=== PATIENT | male | born 1985 | race Caucasian/White ===

== ENCOUNTER 2023-06-01 11:07 | Emergency (ER) | payer OTHER, SELFPAY ==
[2023-06-01 11:10] VITALS: BP 164/85; PULSE 94; RESP 14; TEMP 37.2; O2SAT 99
--- OUTSIDE RECORDS SUMMARY | 2023-06-01 11:15 | XMS_ITS | Continuity of Care Document ---
Author Name Unknown Organization [facility] Address [address] [place] [address] Encounter [facility] FIN NBR [id number] Date(s): 06/14/22 - 06/14/22 [facility] [address], [place] [address] Encounter Diagnosis Encounter for screening for COVID-19(Discharge Diagnosis) - 06/14/22 Discharge Disposition: Home or Self Care Attending Physician: Johnny Land. [place] Problem List Condition Confirmation Course Effective Dates Status Health [facility] Informant Disease caused by 2019 novel coronavirus 1 Confirmed 06/14/22 Active 1Problem added by Rule (IC_COVID19_AUTO_PROBLEM) following SARS-CoV-2 (COVID-19) PCR (GeneXpert) from Nasopharyngeal Swab collected on 14-JUN-2022 10:12:00 EST tested positive for COVID-19. Results Laboratory List Name Date SARS-CoV-2 (COVID-19) Antigen (Binax) PO CT 06/14/22 Most recent to oldest [Reference Range]: 1 SARS-CoV-2 (COVID-19) Ag (Binax) [Negati ve] Negative (06/14/22 8:53 AM)
--- OUTSIDE RECORDS SUMMARY | 2023-06-01 11:16 | XMS_ITS | Continuity of Care Document ---
Author Name Unknown Organization [facility] Address [address] [place] [address] Care Team Providers Care Business Quality Assurance Analyst Name Role Phone SUNDEEP LARA, BRIAN Ann Primary Care Physician Encounter LTTL_ME FIN NBR [id number] Date(s): 01/11/23 - 01/11/23 [facility] [address], [place] [address] Encounter Diagnosis Gout of foot(Discharge Diagnosis) - 01/11/23 Discharge Disposition: Home or Self Care Attending Physician: Kamaljit Solorio MD Admitting Physician: Kamaljit Solorio MD Allergies, Adverse Reactions, Alerts Substance Reaction Severity Status Adhesive Bandage Unknown Active Assessment and Plan Diagnostic Tests Pending * Babesia,HGE,HME,Lyme by PCR LC 01/11/23 Functional Status 01/11/23 Family Member Travel History No recent t ravel Recent Travel History No recent travel Other exposure to Infectious Disease Non e Medications indomethacin 50 mg oral capsule 50 mg = 1 cap, Oral, TID, with food or milk, X 7 days, # 21 cap, 0 Refill(s), 01/18/23 10:34:00 AM CDT Start Date: 01/11/23 Stop Date: 01/18/23 Status: Ordered Mental Status 01/11/23 Eye Opening Response [place] Spontaneous ly Best Verbal Response Giovanni Oriented Best Motor Response Giovanni Obeys comman ds Giovanni Coma Score 15 Problem List Condition Confirmation Course Effective Dates Status Health St atus Informant Disease caused by 2019 novel coronavirus 1 Confirmed 06/14/22 Active 1Problem added by Rule (IC_COVID19_AUTO_PROBLEM) following SARS-CoV-2 (COVID-19) PCR (GeneXpert) from Nasopharyngeal Swab collected on 14-JUN-2022 10:12:00 EST tested positive for COVID-19. Results Laboratory List Name Date C-Reactive Protein High Sensitivity 8/8/ 23 CBC w/ Diff 01/11/23 Comprehensive Metabolic Panel (CMP) Sedimentation Rate (ESR) 01/11/23 Automated Diff 01/11/23 Most recent to oldest [Reference Range]: 1 WBC [4.8-10.8 K/mcL] 16.6 K/mcL *HI* (01/11/23 10:38 AM) RBC [4.20-6.10 Million/mcL] 5.47 Million /mcL (01/11/23 10:38 AM) Neutro Auto [42.2-75.2 %] 75.3 % *HI* (01/11/23 10:38 AM) Lymph Auto [20.5-51.1 %] 17.6 % *LOW* (01/11/23 10:38 AM) [place] Auto [1.7-9.3 %] 5.4 % (01/11/23 10:38 AM) Basophil Auto [0.0-0.8 %] 0.5 % (01/11/23 10:38 AM) BUN [8-26 mg/dL] 17 mg/dL (01/11/23 10:38 AM) Glucose Level [74-106 mg/dL] 111 mg/dL *HI* (01/11/23 10:38 AM) Potassium Level [3.5-5.1 mmol/L] 4.5 mmo l/L (01/11/23 10:38 AM) Baso Absolute [0.0-0.2 K/mcL] 0.1 K/mcL (01/11/23 10:38 AM) MCV [80.0-94.0 fL] 88.7 fL (01/11/23 10:38 AM) AST [15-41 IntlUnit/L] 23 IntlUnit/L (01/11/23 10:38 AM) ALT [17-63 IntlUnit/L] 31 IntlUnit/L (01/11/23 10:38 AM) MCHC [32.0-36.0 g/dL] 33.2 g/dL (01/11/23 10:38 AM) Osmolality [275-295 mOsm/kg] 283 mOsm/kg (01/11/23 10:38 AM) Sodium Level [134-143 mmol/L] 141 mmol/L (01/11/23 10:38 AM) Lymph Absolute [1.2-3.4 K/mcL] 2.9 K/mcL (01/11/23 10:38 AM) Hct [42.0-52.0 %] 48.5 % (01/11/23 10:38 AM) Calcium Level [8.9-10.3 mg/dL] 9.7 mg/dL (01/11/23 10:38 AM) [place]oulder Absolute [0.1-0.6 K/mcL] 0.9 K/mcL *HI* (01/11/23 10:38 AM) Albumin Level [3.5-5.0 g/dL] 4.2 g/dL (01/11/23 10:38 AM) Protein Total [6.5-8.1 g/dL] 7.3 g/dL (01/11/23 10:38 AM) MCH [27.0-31.0 pg] 29.4 pg (01/11/23 10:38 AM) Neutro Absolute [1.4-6.5 K/mcL] 12.5 K/m cL *HI* (01/11/23 10:38 AM) Bilirubin Total [0.2-1.2 mg/dL] 0.7 mg/d L (01/11/23 10:38 AM) Hgb [14.0-18.0 g/dL] 16.1 g/dL (01/11/23 10:38 AM) Alk Phos [38-130 IntlUnit/L] 67 IntlUnit /L (01/11/23 10:38 AM) MPV [7.4-10.4 fL] 9.1 fL (01/11/23 10:38 AM) Platelets [130-400 K/mcL] 390 K/mcL (01/11/23 10:38 AM) CO2 [22-32 mmol/L] 28 mmol/L (01/11/23 10:38 AM) Eos Absolute [0.0-0.2 K/mcL] 0.1 K/mcL (01/11/23 10:38 AM) Chloride Level [98-111 mmol/L] 103 mmol/ L (01/11/23 10:38 AM) RDW-CV [11.5-14.5 %] 12.7 % (01/11/23 10:38 AM) A/G Ratio 1.4 *NA* (01/11/23 10:38 AM) BUN/Creat Ratio [8.0-20.0] 16.2 (01/11/23 10:38 AM) Globulin 3.1 *NA* (01/11/23 10:38 AM) Imm Gran Absolute 0.07 *NA* (01/11/23 10:38 AM) Imm Gran Auto [0.0-0.5 %] 0.4 % (01/11/23 10:38 AM) NRBC Auto 0 *NA* (01/11/23 10:38 AM) CRP High Sens [<=7.5 mg/L] 6.2 mg/L (01/11/23 10:38 AM) NRBC Absolute 0 *NA* (01/11/23 10:38 AM) Slide Review Not Indicated (01/11/23 10:38 AM) Creatinine Level [0.61-1.24 mg/dL] 1.05 mg/dL (01/11/23 10:38 AM) Anion Gap [3.0-12.0] 10.0 (01/11/23 10:38 AM) Eos, Auto [0.00-3.00 %] 0.80 % (01/11/23 10:38 AM) eGFR CKD-EPI [>=60 mL/min/1.73 m2] 95 mL /min/1.73 m2 (01/11/23 10:38 AM) ESR, Westergren [0-15 mm/hr] 3 mm/hr (01/11/23 10:38 AM) Radiology Reports * Exam Date Time Procedure Performing Provider Status 01/11/23 10:35 AM XR Foot Complete 3+ Views Right Carlee Sharma; Auth (Verified) Notes: (XR Foot Complete 3+ Views Right) Reason For Exam: gouty flare XR Foot Complete 3+ Views Right EXAM DESCRIPTION: XR Foot Complete 3+ Views Right 01/11/2023 INDICATION: GOUTY FLARE COMPARISON: 10/27/2009 FINDINGS: No acute fracture, dislocation or bone destructive process. Joint spaces are maintained. No radiographic foreign bodies are seen. IMPRESSION: 1. No acute fracture, dislocation or bone destructive process. JOB #: [id number] Final Signed by: Ntaan Garcia MD Signed (Electronic Signature): 01/11/2023 10:43 am Vital Signs Most recent to oldest [Reference Range]: 1 Temperature Tympanic [36.6-37.9 Deg C] 3 6.3 Deg C *LOW* (01/11/23 9:36 AM) Peripheral Pulse Rate [60-100 bpm] 75 bp m (01/11/23 9:36 AM) Respiratory Rate [12-24 br/min] 19 br/mi n (01/11/23 9:36 AM) Blood Pressure [90-140/60-90 mmHg] 132/1 00mmHg (01/11/23 9:36 AM) Weight 122.47 kg (01/11/23 9:36 AM) Weight Dosing 122.47 kg (01/11/23 9:52 AM) Height 180.340 cm (01/11/23 9:36 AM) Height/Length Dosing 180.340 cm (01/11/23 9:52 AM) Body Mass Index 38.000 kg/m2 (01/11/23 9:36 AM) Social History Social History Type Response Tobacco Never tobacco user T obacco Use:. Sex Hospital Discharge Instructions Patient Education 01/11/2023 10:35:18 Gout Gout Gout is a condition that causes painful swelling of the joints. Gout is a type of inflammation of the joints (arthritis). This condition is caused by having too much uric acid in the body. Uric acid is a chemical that forms when the body breaks down substances called purines. Purines are important for building body proteins. When the body has too much uric acid, sharp crystals can form and build up inside the joints. This causes pain and swelling. Gout attacks can happen quickly and may be very painful (acute gout). Overtime, the attacks can affect more joints and become more frequent (chronic gout). Gout can also cause uric acid to build up under the skin and inside the kidneys. What are the causes? This condition is caused by too much uric acid in your blood. This can happen because: ??? Your kidneys do not remove enough uric acid from your blood. This is the most common cause. ??? Your body makes too much uric acid. This can happen with some cancers and cancer treatments. Itcan also occur if your body is breaking down too many red blood cells (hemolytic anemia). ??? You eat too many foods that are high in purines. These foods include organ meats and some seafood. Alcohol, especially beer, is also high in purines. A gout attack may be triggered by trauma or stress. What increases the risk? The following factors may make you more likely to develop this condition: ??? Having a family history of gout. ??? Being male and middle-aged. ??? Being female and having gone through menopause. ??? Taking certain medicines, including aspirin, cyclosporine, diuretics, levodopa, and niacin. ??? Having an organ transplant. ??? Having certain conditions, such as: ??? Being obese. ??? Lead poisoning. ??? Kidney disease. ??? A skin condition called psoriasis. Other factors include: ??? Losing weight too quickly. ??? Being dehydrated. ??? Frequently drinking alcohol, especially beer. ??? Frequently drinking beverages that are sweetened with a type of sugar called fructose. What are the signs or symptoms? An attack of acute gout happens quickly. It usually occurs in just one joint. The most common placeis the big toe. Attacks often start at night. Other joints that may be affected include joints of the feet, ankle, knee, fingers, wrist, or elbow. Symptoms of this condition may include: ??? Severe pain. ??? Warmth. ??? Swelling. ??? Stiffness. ??? Tenderness. The affected joint may be very painful to touch. ??? Shiny, red, or purple skin. ??? Chills and fever. Chronic gout may cause symptoms more frequently. More joints may be involved. You may also have white or yellow lumps (tophi) on your hands or feet or in other areas near your joints. How is this diagnosed? This condition is diagnosed based on your symptoms, your medical history, and a physical exam. You may have tests, such as: ??? Blood tests to measure uric acid levels. ??? Removal of joint fluid with a thin needle (aspiration) to look for uric acid crystals. ??? X-rays to look for joint damage. How is this treated? Treatment for this condition has two phases: treating an acute attack and preventing future attacks. Acute gout treatment may include medicines to reduce pain and swelling, including: ??? NSAIDs, such as ibuprofen. ??? Steroids. These are strong anti-inflammatory medicines that can be taken by mouth (orally) or injected into a joint. ??? Colchicine. This medicine relieves pain and swelling when it is taken soon after an attack. It can be given by mouth or through an IV. Preventive treatment may include: ??? Daily use of smaller doses of NSAIDs or colchicine. ??? Use of a medicine that reduces uric acid levels in your blood, such as allopurinol. ??? Changes to your diet. You may need to see a dietitian about what to eat and drink to prevent gout. Follow these instructions at home: During a gout attack ??? If directed, put ice on the affected area. To do this: ??? Put ice in a plastic bag. ??? Place a towel between your skin and the bag. ??? Leave the ice on for 20 minutes, 2???3 times a day. ??? Remove the ice if your skin turns bright red. This is very important. If you cannot feel pain, heat, or cold, you have a greater risk of damage to the area. ??? Raise (elevate) the affected joint above the level of your heart as often as possible. ??? Rest the joint as much as possible. If the affected joint is in your leg, you may be given crutches to use. ??? Follow instructions from your health care provider about eating or drinking restrictions. Avoiding future gout attacks ??? Follow a low-purine diet as told by your dietitian or health care provider. Avoid foods and drinks that are high in purines, including liver, kidney, anchovies, asparagus, leigh, mushrooms, mussels, and beer. ??? Maintain a healthy weight or lose weight if you are overweight. If you want to lose weight, talk with your health care provider. Do not lose weight too quickly. ??? Start or maintain an exercise program as told by your health care provider. Eating and drinking ??? Avoid drinking beverages that contain fructose. ??? Drink enough fluids to keep your urine pale yellow. ??? If you drink alcohol: ??? Limit how much you have to: ??? 0???1 drink a day for women who are not . ??? 0???2 drinks a day for men. ??? Know how much alcohol is in a drink. In the [place] one drink equals one 12 oz bottle of beer (355 mL), one 5 oz glass of wine (148 mL), or one 1?? oz glass of hard liquor (44 mL). General instructions ??? Take [id number] and prescription medicines only as told by your health care provider. ??? Ask your health care provider if the medicine prescribed to you requires you to avoid driving or using machinery. ??? Return to your normal activities as told by your health care provider. Ask your health care provider what activities are safe for you. ??? Keep all follow-up visits. This is important. Where to find more information ??? National Institutes of Health: www.niams.nih.gov Contact a health care provider if you have: ??? Another gout attack. ??? Continuing symptoms of a gout attack after 10 days of treatment. ??? Side effects from your medicines. ??? Chills or a fever. ??? Burning pain when you urinate. ??? Pain in your lower back or abdomen. Get help right away if you: ??? Have severe or uncontrolled pain. ??? Cannot urinate. Summary ??? Gout is painful swelling of the joints caused by having too much uric acid in the body. ??? The most common site for gout to occur is in the big toe, but it can affect other joints in thebody. ??? Medicines and dietary changes can help to prevent and treat gout attacks. This information is not intended to replace advice given to you by your health care provider. Make sure you discuss any questions you have with your health care provider. Document Revised: 02/24/2022 Document Reviewed: 02/24/2022 [employer] Patient Education ?? 2022 [employer]. Follow Up Care 01/11/2023 09:36:31 With:BRIAN URBANO NP Address: [address] [place] [address] [address] [place] [address]- When:1 month Physician Emergency department Note * [facility] [place]: PERFORM Event Display: ED Note Physician Authored Date: [id number] HERMELINDO ROYAL :1985 Age:37 years Sex:Male Visit Date:01/11/2023 Primary Care Physician: SUNDEEP LARA, BRIAN Ann Basic Information Time Seen: [facility] [place] / 01/11/2023 09:58 Chief Complaint Gout flare up right ankle History Of Present Illness: Patient is a 37-year-old male here with a concern of a gouty flare. ??Says that he has been experiencing??pain??in the atraumatic right ankle??that began last night.?? Describes pain as a shocking pain??worse with weightbearing or when the blankets touched. Describes a history of gouty flares that has been present since he was 24 years old.?? Says that hehas had 3 flares in the past 5 months.?? Was diagnosed??initially by his PCP??who had him on allopurinol however he had to stop taking this medication due to insurance.?? Typically has??been treated with prednisone in the past for the flares which??he tolerates well. In the past 3 months he has had flares in the right and left podagra and now in the right ankle??which is a new??spot for him. Patient says that he has been trying to control this with diet but has been unsuccessful. Denies any fever, prodromal symptoms??or trauma to the lower??extremities. Has been alternating Tylenol and ibuprofen with some relief this morning. Has never been tested for Lyme's disease. ??Says that he is??pulled a few ticks off him in the pastfew years. Review of Systems: see HPI Physical Exam Vitals & Measurements T:??36.3?C ??(Tympanic)?? HR:??75??(Peripheral)?? RR:??19?? BP:??132/100?? SpO2:??98%?? HT:??180.340??cm?? WT:??122.47??kg?? BMI:??38.000?? Pain Score:??8?? General: Patient is alert and engaging, appears well. Is in no acute distress. Speaking comfortablyin full sentences.??Appears in pain when examining the right??foot. Constitutional: No fevers, chills or diaphoresis.?? HEENT: Head normocephalic and atraumatic. Neck supple with FROM w/o lymphadenopathy or JVD. No c-spine tenderness. Respiratory: ??No obvious work of breathing, regular rate.?? Cardiovascular: Heart regular rate and rhythm w/o murmurs, rubs or gallops. No peripheral edema present.?? Extremities: There is mild localized edema over the right ankle with a??salmon- colored flat rash diffuse borders on the??anterior lateral aspect of the right foot and ankle.?? Tenderness to palpation??over the anterior and anterior aspect of the right foot and ankle.?? Full range of motion. ??Pedalpulses intact. Neuro: CN III-XII grossly intact.?? Psychiatric: acting appropriate for age and circumstance. Normal mood without obvious ??affect.?? Medical Decision Makin-year-old male presenting with concern of a gouty flare. ??Says he has had 2 or 3 flares in the past??5 months.?I am concerned about the amount of flares??believes??he would benefit from??allopurinol. ??Has had this prescription in the past but has not been able to refill it due to insurance re asons. He is experiencing pain on exam but is otherwise sitting comfortably on the bed. No acute findings on xray. Considered infection however is afebrile?? and CRP and ESR were 6.2 and 3 respectively. Concerns??for??is Lyme's disease. ??Patient has not been tested for this in the past and due to??history of being outside and living in an endemic area I did send out a tick panel. ??Results are pending. We will treat for??gouty flare with Indocin. ??Patient understands supportive care??and??diet adjustments.?? Discussed the importance of PCP follow-up??and benefit??of starting on allopurinol. Procedure No Qualifying Data Assessment/Plan 1.??Gout of foot??M10.9 Gouty flare of the right foot.?? Darted on Indocin for an acute flare and discussed the importance of PCP follow-up to start on allopurinol.?? Also may benefit from??rheumatology involvement which rehan discuss with his primary care.?? Return precautions understood. Orders: indomethacin 50 mg oral capsule, 50 mg = 1 cap, Oral, TID, with food or milk, X 7 days, # 21 cap, 0Refill(s), 01/18/23 11:34:00 EDT Babesia,HGE,HME,Lyme by PCR LC, Blood, Stat, 01/11/23 10:17:00 EDT, Once, Nurse collect Patient Education Gout Follow Up With When Contact Information SUNDEEP LARA, BRIAN Ann Within [address] [place] [address] [address] [place] [address]- Additional Instructions: Medication Reconciliation New Prescription indomethacin (indomethacin 50 mg oral capsule)1 Capsules Oral (given by mouth) 3 times a day for 7 Days. with food or milk. Refills: 0. Problem List/Past Medical History Ongoing Disease caused by 2019 novel coronavirus Historical No qualifying data Allergies Adhesive Bandage Social History Electronic Cigarette/Vaping Electronic Cigarette Use: Never. Tobacco Never tobacco user Tobacco Use:. Diagnostic Results XR Foot Complete 3+ Views Right 01/11/2023 10:45 EDT XR Foot Complete 3+ Views Right ?? 01/11/23 10:43:34 EXAM DESCRIPTION: XR Foot Complete 3+ Views Right ?? 01/11/2023 ?? INDICATION: GOUTY FLARE ?? COMPARISON: ?? 10/27/2009 ?? FINDINGS: No acute fracture, dislocation or bone destructive process. Joint spaces are maintained. No radiographic foreign bodies are seen. ?? IMPRESSION: 1. No acute fracture, dislocation or bone destructive process. ? JOB #: [id number] Electronically Signed By: ?? Signed By: Natan Garcia MD Lab Results CBC and Differential?? LATEST RESULTS?? WBC?? 01/11/23 10:38?? 16.6 ??High?? RBC?? 01/11/23 10:38?? 5.47?? Hgb?? 01/11/23 10:38?? 16.1?? Hct?? 01/11/23 10:38?? 48.5?? MCV?? 01/11/23 10:38?? 88.7?? MCH?? 01/11/23 10:38?? 29.4?? MCHC?? 01/11/23 10:38?? 33.2?? RDW-CV?? 01/11/23 10:38?? 12.7?? Platelets?? 01/11/23 10:38?? 390?? MPV?? 01/11/23 10:38?? 9.1?? Neutro Auto?? 01/11/23 10:38?? 75.3 ??High?? Lymph Auto?? 01/11/23 10:38?? 17.6 ??Low?? [place] Auto?? 01/11/23 10:38?? 5.4?? Eos, Auto?? 01/11/23 10:38?? 0.80?? Basophil Auto?? 01/11/23 10:38?? 0.5?? Imm Gran Auto?? 01/11/23 10:38?? 0.4?? NRBC Auto?? 01/11/23 10:38?? 0?? Neutro Absolute?? 01/11/23 10:38?? 12.5 ??High?? Lymph Absolute?? 01/11/23 10:38?? 2.9?? [place] Absolute?? 01/11/23 10:38?? 0.9 ??High?? Eos Absolute?? 01/11/23 10:38?? 0.1?? Baso Absolute?? 01/11/23 10:38?? 0.1?? Imm Gran Absolute?? 01/11/23 10:38?? 0.07?? NRBC Absolute?? 01/11/23 10:38?? 0?? Slide Review?? 01/11/23 10:38?? Not Indicated? Miscellaneous Hematology?? LATEST RESULTS?? ESR, Westergren?? 01/11/23 10:38?? 3? Routine Chemistry?? LATEST RESULTS?? Sodium Level?? 01/11/23 10:38?? 141?? Potassium Level?? 01/11/23 10:38?? 4.5?? Chloride Level?? 01/11/23 10:38?? 103?? CO2?? 01/11/23 10:38?? 28?? Alk Phos?? 01/11/23 10:38?? 67?? AST?? 01/11/23 10:38?? 23?? ALT?? 01/11/23 10:38?? 31?? BUN?? 01/11/23 10:38?? 17?? Glucose Level?? 01/11/23 10:38?? 111 ??High?? Creatinine Level?? 01/11/23 10:38?? 1.05?? BUN/Creat Ratio?? 01/11/23 10:38?? 16.2?? eGFR CKD-EPI?? 01/11/23 10:38?? 95?? Calcium Level?? 01/11/23 10:38?? 9.7?? Protein Total?? 01/11/23 10:38?? 7.3?? Albumin Level?? 01/11/23 10:38?? 4.2?? Globulin?? 01/11/23 10:38?? 3.1?? A/G Ratio?? 01/11/23 10:38?? 1.4?? Bilirubin Total?? 01/11/23 10:38?? 0.7?? Anion Gap?? 01/11/23 10:38?? 10.0?? Osmolality?? 01/11/23 10:38?? 283?? CRP High Sens?? 01/11/23 10:38?? 6.2? Electronically Signed on 01/11/23 11:47 AM [facility] [place] Emergency department Discharge instructions * [facility] [place]: PERFORM Event Display: ED Discharge Information Authored Date: [id number] HERMELINDO ROYAL :1985 Age:37 years Sex:Male Visit Date:01/11/2023 Primary Care Physician: SUNDEEP LARA, BRIAN Ann Discharge Instructions We would like to thank you for allowing us to assist you with your healthcare needs. The following includes patient education materials and information regarding your injury/illness. Diagnosis from Today's Visit Gout of foot Discharge Vitals Temperature??(Tympanic) 97.3 ??F (36.3 ??C) Heart Rate??(Peripheral) 75 Respiratory Rate?? 19 Blood Pressure?? 132/100?? Height?? 71.00 in (180.340 cm) Weight?? 270.05 lb (122.47 kg) BMI?? 38.000 Allergies Adhesive Bandage What to Do Next Instructions from Your Care Team Please take indomethacin as prescribed. ??We have sent out the tick panel and we will contact you with results.?? I am concerned that you have had multiple gouty flares in the past 5 months. ??At this point it would be??very important to follow-up with your primary care??and would likely be beneficial for you to start on allopurinol when this flare has resolved. You Need to Schedule the Following Appointments Follow Up with??SUNDEEP LARA, BRIAN Ann When:??Within 1 month Where: [address] [place] [address] [address] [place] [address]- You were treated today on an emergency basis; it may be soriano to contact your primary care provider to notify them of your visit today. You may have been referred to your regular doctor or a specialist, please follow up as instructed. If your condition worsens or you can't get in to see the doctor, contact the Emergency Department. Medications What How Much When Instructions Next Dose New indomethacin (indomethacin 50 mg oral capsule) 1 Capsules Oral (given by mouth) 3 times a day Duration: 7 Days with food or milk ?? Printed Prescription Education Materials Gout Gout is a condition that causes painful swelling of the joints. Gout is a type of inflammation of the joints (arthritis). This condition is caused by having too much uric acid in the body. Uric acid is a chemical that forms when the body breaks down substances called purines. Purines are important for building body proteins. When the body has too much uric acid, sharp crystals can form and build up inside the joints. This causes pain and swelling. Gout attacks can happen quickly and may be very painful (acute gout). Overtime, the attacks can affect more joints and become more frequent (chronic gout). Gout can also cause uric acid to build up under the skin and inside the kidneys. What are the causes? This condition is caused by too much uric acid in your blood. This can happen because: ? Your kidneys do not remove enough uric acid from your blood. This is the most common cause. ? Your body makes too much uric acid. This can happen with some cancers and cancer treatments. It canalso occur if your body is breaking down too many red blood cells (hemolytic anemia). ? You eat too many foods that are high in purines. These foods include organ meats and some seafood. Alcohol, especially beer, is also high in purines. A gout attack may be triggered by trauma or stress. What increases the risk? The following factors may make you more likely to develop this condition: ? Having a family history of gout. ? Being male and middle-aged. ? Being female and having gone through menopause. ? Taking certain medicines, including aspirin, cyclosporine, diuretics, levodopa, and niacin. ? Having an organ transplant. ? Having certain conditions, such as: ? Being obese. ? Lead poisoning. ? Kidney disease. ? A skin condition called psoriasis. Other factors include: ? Losing weight too quickly. ? Being dehydrated. ? Frequently drinking alcohol, especially beer. ? Frequently drinking beverages that are sweetened with a type of sugar called fructose. What are the signs or symptoms? An attack of acute gout happens quickly. It usually occurs in just one joint. The most common placeis the big toe. Attacks often start at night. Other joints that may be affected include joints of the feet, ankle, knee, fingers, wrist, or elbow. Symptoms of this condition may include: ? Severe pain. ? Warmth. ? Swelling. ? Stiffness. ? Tenderness. The affected joint may be very painful to touch. ? Shiny, red, or purple skin. ? Chills and fever. Chronic gout may cause symptoms more frequently. More joints may be involved. You may also have white or yellow lumps (tophi) on your hands or feet or in other areas near your joints. How is this diagnosed? This condition is diagnosed based on your symptoms, your medical history, and a physical exam. You may have tests, such as: ? Blood tests to measure uric acid levels. ? Removal of joint fluid with a thin needle (aspiration) to look for uric acid crystals. ? X-rays to look for joint damage. How is this treated? Treatment for this condition has two phases: treating an acute attack and preventing future attacks. Acute gout treatment may include medicines to reduce pain and swelling, including: ? NSAIDs, such as ibuprofen. ? Steroids. These are strong anti-inflammatory medicines that can be taken by mouth (orally) or injected into a joint. ? Colchicine. This medicine relieves pain and swelling when it is taken soon after an attack. It can be given by mouth or through an IV. Preventive treatment may include: ? Daily use of smaller doses of NSAIDs or colchicine. ? Use of a medicine that reduces uric acid levels in your blood, such as allopurinol. ? Changes to your diet. You may need to see a dietitian about what to eat and drink to prevent gout. Follow these instructions at home: During a gout attack ? If directed, put ice on the affected area. To do this: ? Put ice in a plastic bag. ? Place a towel between your skin and the bag. ? Leave the ice on for 20 minutes, 2???3 times a day. ? Remove the ice if your skin turns bright red. This is very important. If you cannot feel pain, heat, or cold, you have a greater risk of damage to the area. ? Raise (elevate) the affected joint above the level of your heart as often as possible. ? Rest the joint as much as possible. If the affected joint is in your leg, you may be given crutchesto use. ? Follow instructions from your health care provider about eating or drinking restrictions. Avoiding future gout attacks ? Follow a low-purine diet as told by your dietitian or health care provider. Avoid foods and drinks that are high in purines, including liver, kidney, anchovies, asparagus, leigh, mushrooms, mussels, and beer. ? Maintain a healthy weight or lose weight if you are overweight. If you want to lose weight, talk with your health care provider. Do not lose weight too quickly. ? Start or maintain an exercise program as told by your health care provider. Eating and drinking ? Avoid drinking beverages that contain fructose. ? Drink enough fluids to keep your urine pale yellow. ? If you drink alcohol: ? Limit how much you have to: ? 0???1 drink a day for women who are not . ? 0???2 drinks a day for men. ? Know how much alcohol is in a drink. In the [place] one drink equals one 12 oz bottle of beer (355 mL), one 5 oz glass of wine (148 mL), or one 1?? oz glass of hard liquor (44 mL). General instructions ? Take [id number] and prescription medicines only as told by your health care provider. ? Ask your health care provider if the medicine prescribed to you requires you to avoid driving or using machinery. ? Return to your normal activities as told by your health care provider. Ask your health care provider what activities are safe for you. ? Keep all follow-up visits. This is important. Where to find more information ? National Institutes of Health: www.niams.nih.gov Contact a health care provider if you have: ? Another gout attack. ? Continuing symptoms of a gout attack after 10 days of treatment. ? Side effects from your medicines. ? Chills or a fever. ? Burning pain when you urinate. ? Pain in your lower back or abdomen. Get help right away if you: ? Have severe or uncontrolled pain. ? Cannot urinate. Summary ? Gout is painful swelling of the joints caused by having too much uric acid in the body. ? The most common site for gout to occur is in the big toe, but it can affect other joints in the body. ? Medicines and dietary changes can help to prevent and treat gout attacks. This information is not intended to replace advice given to you by your health care provider. Make sure you discuss any questions you have with your health care provider. Document Revised: 02/24/2022 Document Reviewed: 02/24/2022 [email or web address] Patient Education ?? 2022 [email or web address] Tests Performed Radiology XR Foot Complete 3+ Views Right 01/11/2023 10:45 EDT Lab Test Name Test Result Date/Time WBC 16.6 K/mcL 01/11/2023 10:38 EDT RBC 5.47 Million/mcL 01/11/2023 10:38 EDT Hgb 16.1 g/dL 01/11/2023 10:38 EDT Hct 48.5 % 01/11/2023 10:38 EDT MCV 88.7 fL 01/11/2023 10:38 EDT MCH 29.4 pg 01/11/2023 10:38 EDT MCHC 33.2 g/dL 01/11/2023 10:38 EDT RDW-CV 12.7 % 01/11/2023 10:38 EDT Platelets 390 K/mcL 01/11/2023 10:38 EDT MPV 9.1 fL 01/11/2023 10:38 EDT Neutro Auto 75.3 % 01/11/2023 10:38 EDT Lymph Auto 17.6 % 01/11/2023 10:38 EDT [place] Auto 5.4 % 01/11/2023 10:38 EDT Eos, Auto 0.80 % 01/11/2023 10:38 EDT Basophil Auto 0.5 % 01/11/2023 10:38 EDT Imm Gran Auto 0.4 % 01/11/2023 10:38 EDT NRBC Auto 0 01/11/2023 10:38 EDT Neutro Absolute 12.5 K/mcL 01/11/2023 10:38 EDT Lymph Absolute 2.9 K/mcL 01/11/2023 10:38 EDT [place] Absolute 0.9 K/mcL 01/11/2023 10:38 EDT Eos Absolute 0.1 K/mcL 01/11/2023 10:38 EDT Baso Absolute 0.1 K/mcL 01/11/2023 10:38 EDT Imm Gran Absolute 0.07 01/11/2023 10:38 EDT NRBC Absolute 0 01/11/2023 10:38 EDT Slide Review Not Indicated 01/11/2023 10:38 EDT ESR, Westergren 3 mm/hr 01/11/2023 10:38 EDT Sodium Level 141 mmol/L 01/11/2023 10:38 EDT Potassium Level 4.5 mmol/L 01/11/2023 10:38 EDT Chloride Level 103 mmol/L 01/11/2023 10:38 EDT CO2 28 mmol/L 01/11/2023 10:38 EDT Alk Phos 67 IntlUnit/L 01/11/2023 10:38 EDT AST 23 IntlUnit/L 01/11/2023 10:38 EDT ALT 31 IntlUnit/L 01/11/2023 10:38 EDT BUN 17 mg/dL 01/11/2023 10:38 EDT Glucose Level 111 mg/dL 01/11/2023 10:38 EDT Creatinine Level 1.05 mg/dL 01/11/2023 10:38 EDT BUN/Creat Ratio 16.2 01/11/2023 10:38 EDT eGFR CKD-EPI 95 mL/min/1.73 m2 01/11/2023 10:38 EDT Calcium Level 9.7 mg/dL 01/11/2023 10:38 EDT Protein Total 7.3 g/dL 01/11/2023 10:38 EDT Albumin Level 4.2 g/dL 01/11/2023 10:38 EDT Globulin 3.1 01/11/2023 10:38 EDT A/G Ratio 1.4 01/11/2023 10:38 EDT Bilirubin Total 0.7 mg/dL 01/11/2023 10:38 EDT Anion Gap 10.0 01/11/2023 10:38 EDT Osmolality 283 mOsm/kg 01/11/2023 10:38 EDT CRP High Sens 6.2 mg/L 01/11/2023 10:38 EDT Patient/Authorization Manager Signature Patient Name:HERMELINDO ROYAL Cj I have received this information and my questions have been answered. Patient/Authorization Manager Name: Patient/Authorization Manager Signature: Relationship to Patient: Witness Name/Signature: Date: Electronically Signed on: 01/11/2023 11:37 EDTSigned by:LORI Patient Care team information Care Team Personnel Name: BRIAN URBANO NP Position: No Access Member Role: Primary Care Physician Address: Address: [address] [place] [id number] [place] Name: Bibiana Pereira Position: Nurse Member Role: ED Nurse Name: SAMEER Richmond Position: Physician Member Role: Physician Address: Address: [address] [place] [phone] [place]
--- NOTE | 2023-06-01 11:21 | W.ED.GENAD ---
Discharge Plan Disposition Patient Disposition: Home Discharge Details Clinical Impression: Effect of accidental exposure to external cause Primary Care Provider: None,None ED Provider: Ashwin Anthony Home Meds and New Rx's Prescriptions: Continued colchicine [Colcrys] 0.6 mg tablet 0.6 mg PO DAILY PRN Rx Instructions: Day one: take two tab at onset of pain. Then take another tablet 1 hour later. Day 2+: take once or twice daily for persistant pain Discharge Instructions Additional Instructions: You were seen in the emergency department for your accidental exposure to possible cocaine. You are observed for a period lasting longer than 2 hours and showed no acute signs of toxicity of any substance whether opiate or stimulant. I do not suspect that there is any dangerous effect, your urine drug screen only was positive for THC, it is likely too early exposure to test positive for any other substance, you may repeat this test with your primary care provider if you have concerns in the next 24-48 hours. Discharge Data Discharge Date/Time-TO BE ENTERED AT DEPARTURE: 06/01/23 12:36 Medical Decision Making This dictation utilizes [id number]-[id number] dictation software and may contain unedited grammatical errors. 38 y/o M presents to ED today with a chief complaint of accidental exposure to possible cocaine while cleaning a clients house working as [employer] worker- states his tongue is numb slightly, very small amount, one hour ago. Patients' medical history: negative, otherwise healthy. Family and social history: noncontributory, endorses cocaine use long ago and that it tasted similar. Pertinent exam findings / vital signs include benign cardiopulmonary status, anxious. Differential / pathologies of concern include miniscule exposure to cocaine, or fentanyl, dust inhalation. Diagnostic studies of: -UDS - positive for THC. Interventions of: -none, obs for 2 hours post-exposure no concerning symptoms. ED Course/Assessment/Plan: Counseled the patient that his UDS was only positive for THC, possibly too early in course, recommend he get a repeat UDS tomorrow if he is that concerned but overall I do not think he will have any adverse events from this exposure. Findings not consistent with overdose. Disposition of Effect of Accidental Exposure to External Cause. Patient verbalized understanding of the plan and return to ED criteria and engaged in shared decision making. Medical Records Medical records reviewed: Yes I reviewed the patient's medical records. Lab Data Lab results reviewed: Yes I reviewed the patient's lab results. Labs: Laboratory Tests Range/Units 06/01/23 11:40 Urine Opiates Screen (Negative) Negative Urine Methadone Screen (Negative) Negative Ur Barbiturates Screen (Negative) Negative Ur Tricyclics Screen (Negative) Negative Ur Amphetamines Screen (Negative) Negative U Benzodiazepines Scrn (Negative) Negative Urine Cocaine Screen (Negative) Negative Ur THC Screen (Negative) Positive A HPI General Date/Time Provider Initiated Documentation: 06/01/23 11:17. HPI Narrative: 38 year-old male presents to ED today by POV/ambulating with a chief complaint of accidental exposure to possible illegal substance with onset about 60 minutes prior to arrival - Patient works for [employer], and was at a clients home cleaning it- history of drug use in the home, and states he recognized some small baggies and paraphernalia of cocaine, and was sweeping and felt like a small amount of it became aerosolized, he reports mild tongue numbness, and anxiety over possible fentanyl exposure. Quality described as mild tongue numbness, no radiation to chest pain, shortness of breath, abdominal pain, nausea/vomiting, near-syncope. Severity is described as mild/10. Palliating factors include nothing specific attempted. Provoking factors include nothing specific. Patient not anticoagulated. Related Data Home Medications Medication Instructions Recorded Confirmed colchicine 0.6 mg tablet (Colcrys) 0.6 mg PO DAILY PRN 06/01/23 06/01/23 Allergies Allergy/AdvReac Type Severity Reaction Status Date / Time No Known Allergies Allergy Verified 06/01/23 11:15 General Stated Complaint: GenMedical ANA: 3 Review of Systems All systems reviewed & are unremarkable except as noted in HPI and below PFSH All Active Problems (Updated 06/01/23 @ 12:27 by SAMEER Mcclain) Effect of accidental exposure to external cause (Acute) Social History Smoking/Tobacco Use Status: Current every day Tobacco Type: e-cigarettes Smoking risk assessment performed?: Yes Alcohol Intake: current Alcohol Intake frequency: holidays/special occasions only Drug use: Occasionally Substance use type: marijuana Housing: apartment Do you feel safe at home: Yes Do you feel safe in your relationship?: Yes Exam Narrative Exam Narrative: GENERAL APPEARANCE: Well-nourished, non-toxic, awake and alert, atraumatic, no acute distress. SKIN: Warm, pink, dry, intact, without rashes/lesions/ulcerations. HEAD: Normocephalic, atraumatic, normal hair distribution for gender/age. EYES: Pupils PERRLA, EOMs intact without nystagmus, normal conjunctiva, no exudates on lids/lashes. ENT: Nares patent, no circumoral cyanosis, no facial swelling NECK: Supple, trachea midline, painless cervical ROM. LUNGS/CHEST: Non-labored respirations, normal A/P diameter, symmetrical expansion, no chest wall deformity HEART (CV/PV): No peripheral edema, no JVD. ABDOMEN: Soft, non-distended, no guarding. MSK: Normal ROM, no swelling/deformity to bilateral UEs or LEs, moving all extremities without weakness, no cyanosis, spine midline without tenderness, normal curvature. NEURO: Mental Status AAOx4 - alert to person, place, time, events No facial droop, no forehead involvement. Motor: No focal weakness - strength 5/5 in bilateral UEs and LEs, proximal and distal, symmetric. Sensory: sensation intact to light touch globally. Gait normal: patient ambulated without ataxia into ED room. PSYCH: euthymic, cooperative, pleasant, appropriate speech Course Vital Signs Vital signs: Vital Signs Temperature 37.2 C 06/01/23 11:10 Pulse 94 H 06/01/23 11:10 Respiratory Rate 14 06/01/23 11:10 Blood Pressure 164/85 H 06/01/23 11:10 Pulse Oximetry 99 06/01/23 11:10 Temperature 37.2 C 06/01/23 11:10 Temperature Source Skin 06/01/23 11:10 Pulse 94 H 06/01/23 11:10 Respiratory Rate 14 06/01/23 11:10 Respiratory Effort Normal 06/01/23 11:16 Blood Pressure 164/85 H 06/01/23 11:10 Pulse Oximetry 99 06/01/23 11:10 Oxygen Delivery Method Room Air 06/01/23 11:10 Oxygen Flow Rate 0 06/01/23 11:10 Pain Level 3 06/01/23 11:10
[2023-06-01 11:33] VITALS: BP 164/85; PULSE 94; RESP 14; RESP 20; TEMP 37.2; O2SAT 99
[2023-06-01 11:59] LABS: *AMPHETAMINES SCREEN URINE Negative (Negative); *BARBITURATES SCREEN URINE Negative (Negative); *BENZODIAZEPINES SCREEN URINE Negative (Negative); Cannabinoids THC Positive (Negative); Cocaine Screen,Urine Negative (Negative); METHADONE URINE SCREEN Negative (Negative); OPIATES URINE SCREEN Negative (Negative)
[2023-06-01 12:01] LABS: Tricyclic Antidepressants Negative (Negative)
[2023-06-01 12:23] VITALS: BP 127/86; PULSE 94; RESP 14; TEMP 37.5; O2SAT 100
== END 2023-06-01 12:36 | disposition home or self-care (01) ==
PROVIDERS: Emergency Provider Physician Assistant
DX: T75.89XA Other specified effects of external causes, initial encounter (principal); R20.0 Anesthesia of skin; Y93.E9 Activity, other interior property and clothing maintenance; Y93.F9 Activity, other caregiving; Y92.018 Other place in single-family (private) house as the place of occurrence of the external cause; Y99.0 Civilian activity done for income or pay
CPT/HCPCS: 80307; 99282